=== PATIENT | male | born 1970 | race Hispanic/Latino ===

== ENCOUNTER 2016-07-13 16:15 | Emergency (ER) | payer MEDICAID, OTHER ==
[2016-07-13 16:16] VITALS: BMI 30.4
[2016-07-13] MEDS ORDERED: Nitroglycerin 2% Ointment Foilpak UD TOP STA (16:18)
[2016-07-13] MEDS ORDERED: Nitroglycerin 2% Ointment Foilpak UD TOP ONE (16:19)
--- NOTE | 2016-07-13 16:34 | C.PDOC ---
Time Seen by Provider: 07/13/16 16:17 Chief Complaint (Nursing): Weakness/Neurological Deficit Past Medical History - Medical History PMH: HTN, Hypercholesterolemia, Hypothyroidism Family History: States: Unknown Family Hx - Social History Hx Tobacco Use: No Hx Alcohol Use: No Hx Substance Use: No - Immunization History Hx Tetanus Toxoid Vaccination: No Hx Influenza Vaccination: Yes Hx Pneumococcal Vaccination: No
[2016-07-13] MEDS ORDERED: Benzoin Compound Tincture (60 ml) ONE (16:37)
[2016-07-13] MEDS ORDERED: Propofol 10 mg/ml Inj (20 ML) ONE ×2 (16:39→16:58)
[2016-07-13] MEDS ORDERED: Labetalol 25mg/5ml Syringe IVP STA ×2 (16:40→17:52)
[2016-07-13] MEDS ORDERED: Labetalol 25mg/5ml Syringe ONE ×2 (16:41→17:03)
--- NOTE | 2016-07-13 16:49 | CT ---
PROCEDURE: CT HEAD WITHOUT CONTRAST. HISTORY: Code Stroke COMPARISON: None available. TECHNIQUE: Axial computed tomography images were obtained through the head/brain without intravenous contrast. Radiation dose: Total exam DLP = 2688.06 mGy-cm. FINDINGS: HEMORRHAGE: Current study reveals a large elliptical shaped hematoma within the left lateral basal ganglia surrounded by a thin rim of low-attenuation edema and or necrotic brain tissue. Location of this hematoma suggests hypertensive origin however clinical correlation with history recommended. The hematoma measures approximately 5.25 x 2.75 cm in AP and transverse dimension. The collection exerts surrounding mass effect with compression of the left lateral ventricle and overlying sulcal effacement. There is very slight midline shift with septum pellucidum displaces the right-sided by approximately 3.6 mm. BRAIN: Mass effect as above. VENTRICLES: No evidence of obstructive hydrocephalus despite compression of the left lateral ventricle body aforementioned hematoma. CALVARIUM: Unremarkable. PARANASAL SINUSES: Extensive postoperative changes left maxillary antrum and left nasal cavity and ethmoid air complexes as well as sphenoid sinus. . Clinic correlation with history recommended. Polypoid like mucosal thickening right maxillary sinus. MASTOID AIR CELLS: Unremarkable as visualized. No inflammatory changes. OTHER FINDINGS: IMPRESSION: Large left basal ganglia hematoma most likely hypertensive in origin. Clinical correlation recommended. . Thin rim of surrounding edema and mass effect as above. Mild [id number] midline shift. Findings discussed with Dr. Watson at approximately 4:45 p.m. with written down and read back verification.
--- NOTE | 2016-07-13 16:57 | RAD ---
HISTORY: stroke COMPARISON: No prior. FINDINGS: LUNGS: Slight elevation left hemidiaphragm possibly in part due to distended air-filled bowel beneath the left hemidiaphragm. Suspect minimal left basilar atelectasis as well. PLEURA: No significant pleural effusion identified, no pneumothorax apparent. CARDIOVASCULAR: Normal. OSSEOUS STRUCTURES: No significant abnormalities. VISUALIZED UPPER ABDOMEN: Normal. OTHER FINDINGS: None. IMPRESSION: Slight elevation left hemidiaphragm possibly due to distended air-filled bowel beneath the left hemidiaphragm . Suspect minimal left basilar as well.
[2016-07-13 17:07] LABS: BASO # 0.1 K/uL (0.0-0.2); BASO % 0.7 % (0.0-2.0); EOS # 0.2 K/uL (0.0-0.7); EOS % 1.9 % (0.0-4.0); HEMATOCRIT 48.6 % (35.0-51.0); LYMPH # 3.4 K/uL (1.0-4.3); LYMPH % 32.9 % (20.0-40.0); MEAN CELL VOLUME 93.1 fL (80.0-94.0); MEAN CORPUSCULAR HEMOGLOBIN 32.2 pg (27.0-31.0); MEAN CORPUSCULAR HGB CONC 34.5 g/dL (33.0-37.0); MONO % 9.3 % (0.0-10.0); NRBC % 0.1 % (0.0-2.0); RED CELL DISTRIBUTION WIDTH 13.4 % (11.5-14.5); WHITE BLOOD COUNT 10.4 K/uL (4.8-10.8)
[2016-07-13 17:08] LABS: INR 0.9
[2016-07-13] MEDS ORDERED: Etomidate 20 mg/10ml Inj IV ONE ×3 (17:08→17:53)
[2016-07-13 17:15] VITALS: RESP 19; O2SAT 96
--- NOTE | 2016-07-13 17:42 | C.PDOC ---
History Of Present Illness Patient is a 45 y/o male that is brought to ED by EMS for evaluation of sudden onset of right facial droop, right sided flaccid, and change in metal status. Pt was last seen normal at 11:15 today. Patient was found on the floor by girlfriend at 15:45. HPI limited due to patient's condition. Time Seen by Provider: 07/13/16 16:17 Chief Complaint (Nursing): Weakness/Neurological Deficit History Per: EMS History/Exam Limitations: no limitations Current Symptoms Are (Timing): Still Present Additional History Per: Family (girlfriend) Past Medical History Reviewed: Historical Data, Nursing Documentation, Vital Signs Vital Signs: Last Vital Signs Temp 98 F 07/13/16 17:45 Pulse 87 07/13/16 17:45 Resp 19 07/13/16 17:10 BP 126/71 07/13/16 17:45 Pulse Ox 96 07/13/16 18:00 - Medical History PMH: HTN, Hypercholesterolemia, Hypothyroidism Family History: States: Unknown Family Hx - Social History Hx Tobacco Use: No Hx Alcohol Use: Yes (15 drinks a day) Hx Substance Use: Yes (prescribed pain meds occassinally) - Immunization History Hx Tetanus Toxoid Vaccination: No Hx Influenza Vaccination: Yes Hx Pneumococcal Vaccination: No Review Of Systems Review Of Systems: ROS cannot be obtained secondary to pt's inabilty to answer questions. Physical Exam - Physical Exam Skin: Normal Color, Warm, Dry Head: Atraumatic, Normacephalic, Other (right facial droop) Eye(s): bilateral: Normal Inspection, EOMI Chest: Symmetrical Cardiovascular: Rhythm Regular Respiratory: Normal Breath Sounds Extremity: No Deformity, Other (right arm and leg flaccid) Neurological/Psych: No Normal Speech (slurred speech), Other (awake; confused) ED Course And Treatment - Laboratory Results Result Diagrams: 07/13/16 16:56 07/13/16 17:37 O2 Sat by Pulse Oximetry: 96 (RA) Pulse Ox Interpretation: Normal Critical Care Time - Critical Care Note Total Time (in mins): 120 Documented critical care: time excludes all time spent performing seperately billable procedures. Medical Decision Making Medical Decision Makin:15 last texted normal with girlfriend 1545: found by girlfriend on ground, change of mental status, R side body flaccid 1610: Arrived [facility], Code Stroke Called 1620: d/w Neuro Consult- Dr. Solis- agrees to transfer pt to [facility] 1630: Calls made to [facility] for [facility] 1645: Code Stroke Head CT findings positive 1730: Pt intubated- difficult with vomiting during intubation 1750: EMS/ALS Transport arrived 1820: Transport departed with pt for [facility] ED significant difficulties sedating pt with propofol even in regular large bolus- prob related to high alcohol metabolic tolerance. Disposition Doctor Will See Patient In The: Hospital - Disposition Disposition: Trans to Other Acute Care Hosp Disposition Time: 18:30 Condition: SERIOUS - Clinical Impression Clinical Impression: Hemorrhagic stroke, Alcohol abuse - Scribe Statement The provider has reviewed the documentation as recorded by the Александр Coats Provider Attestation: All medical record entries made by the Jonathanibpriscila were at my direction and personally dictated by me. I have reviewed the chart and agree that the record accurately reflects my personal performance of the history, physical exam, medical decision making, and the department course for this patient. I have also personally directed, reviewed, and agree with the discharge instructions and disposition.
[2016-07-13 17:49] LABS: CHLORIDE 100 mmol/L (98-107); SODIUM 137 mmol/L (132-148)
[2016-07-13 17:50] VITALS: BP 126/71; PULSE 87
[2016-07-13 17:50] LABS: POTASSIUM 3.9 mmol/L (3.6-5.2)
[2016-07-13 17:51] LABS: CHOLESTEROL 158 mg/dL (0-199)
[2016-07-13 17:52] LABS: ALB/GLOB RATIO 1.2 (1.0-2.1); ALKALINE PHOSPHATASE 60 U/L (38-126); ALT/SGPT 80 U/L (21-72); AST/SGOT 71 U/L (17-59); BILIRUBIN,TOTAL 0.8 mg/dL (0.2-1.3); BLOOD UREA NITROGEN 11 mg/dL (9-20); CARBON DIOXIDE 21 mmol/L (22-30); GFR AFRICAN-AMERICAN > 60; GLUCOSE,RANDOM 172 mg/dL (75-110); TOTAL PROTEIN 7.7 g/dL (6.3-8.3)
[2016-07-13 17:53] LABS: ALCOHOL SERUM < 10 mg/dl (0-10)
[2016-07-13] MEDS ORDERED: Propofol 10 mg/ml Inj (20 ML) IV ONE (17:59)
[2016-07-13 18:26] VITALS: TEMP 98
--- NOTE | 2016-07-16 07:59 | CARD ---
APPROVED REPORT EKG Measurement Heart [id number] <Conclusion> Normal sinus rhythm Normal ECG
== END 2016-07-13 18:17 | disposition short-term general hospital (02) ==
LOC: C.ER 16:15
DX: I62.9 Nontraumatic intracranial hemorrhage, unspecified (principal); R29.810 Facial weakness; I10 Essential (primary) hypertension; F10.10 Alcohol abuse, uncomplicated